=== PATIENT | female | born 1985 | race Caucasian/White ===

== ENCOUNTER → 2018-06-13 | Outpatient (CLI) | payer OTHER ==
[~2018-06-13] MED LIST: ESCI10TA10 PO; IBUP-1222 PO; PRE NATAL PO
[2018-06-13 15:16] LABS: MICROSCOPIC AUTO
[2018-06-13 15:17] LABS: BASOPHILS # (AUTO) 0.04 x10^3/uL (0-0.1); BASOPHILS % (AUTO) 1 % (0-1); EOSINOPHILS # (AUTO) 0.07 x10^3/uL (0-0.4); EOSINOPHILS % (AUTO) 1 % (1-7); LYMPHOCYTES # (AUTO) 1.82 x10^3/uL (1-3.4); LYMPHOCYTES % (AUTO) 35 % (22-44); MD NO; MEAN CORPUSCULAR HEMOGLOBIN 28.9 pg (27.0-34.8); MEAN CORPUSCULAR HGB CONC 32.7 g/dL (32.4-35.8); MEAN CORPUSCULAR VOLUME 88.4 fL (80-100); MEAN PLATELET VOLUME 9.3 fL (7.4-10.4); MONOCYTES % (AUTO) 6 % (2-9); NEUTROPHILS # (AUTO) 3.04 x10^3/uL (1.8-6.8); NEUTROPHILS % (AUTO) 58 % (42-75); PLATELET COUNT 229 x10^3/uL (130-400); RED BLOOD COUNT 4.48 x10^6/uL (3.82-5.3); RED CELL DISTRIBUTION WIDTH 13.7 % (9.6-15.2)
[2018-06-13 15:18] LABS: CULTURE INDICATED? YES
[2018-06-13 15:26] LABS: ALANINE AMINOTRANSFERASE 35 U/L (12-78); ALBUMIN 3.5 g/dL (3.4-5.0); ANION GAP 8 mmol/L (5-15); CALCIUM 8.8 mg/dL (8.5-10.1); CHLORIDE 110 mmol/L (98-107); CREATININE 0.79 mg/dL (0.55-1.02)
[2018-06-13 15:30] LABS: ALKALINE PHOSPHATASE 71 U/L (45-117); BILIRUBIN,TOTAL 0.6 mg/dL (0.2-1.0)
== END | disposition home or self-care (01) ==
LOC: STAR 14:21
PROVIDERS: ATTEND Obstetrics & Gynecology
DX: N87.9 Dysplasia of cervix uteri, unspecified (principal)
CPT/HCPCS: 36415; 80053; 81001; 84702; 85025; 87086

== ENCOUNTER 2018-06-27 05:49 | Day surgery (SDC) | payer OTHER ==
[~2018-06-27] VITALS: Ht 167.6 cm; Wt 72.0 kg
[2018-06-27] MEDS ORDERED: LIDOCAINE 1%-EPI 1:100K, 30ML ONE (06:46)
[2018-06-27 06:47] VITALS: BP 103/68
[2018-06-27] MEDS ORDERED: LACTATED RINGERS 1,000 ML IV SCH (06:51)
[2018-06-27 06:59] LABS: HCG UR SG 1.024 (1.003-1.030)
[2018-06-27] MEDS ORDERED: LIDOCAINE-MPF 1%, 2ML INFIL ONE (07:00)
[2018-06-27] MEDS ORDERED: MIDAZOLAM 1 MG/ML, 2ML ONE (07:01)
[2018-06-27] MEDS ORDERED: FENTANYL PF 250 MCG/5ML ONE (07:02)
[2018-06-27] MEDS ORDERED: PROPOFOL 10 MG/ML, 20ML ONE (07:03)
[2018-06-27] MEDS ORDERED: ONDANSETRON 2MG/ML, 2ML ONE (07:03)
[2018-06-27] MEDS ORDERED: DEXAMETHASONE 4 MG/ML, 1ML ONE (07:04)
[2018-06-27] MEDS ORDERED: OXYcodone 5 MG/5 ML ORAL.SOL UDC PO PRN (07:30)
[2018-06-27] MEDS ORDERED: MIDAZOLAM 1 MG/ML, 2ML IV PRN (07:30)
[2018-06-27] MEDS ORDERED: MEPERIDINE/PF 25MG/0.5ML IVPush PRN (07:30)
[2018-06-27] MEDS ORDERED: FENTANYL PF 100 MCG/2ML IV PRN (07:30)
[2018-06-27] MEDS ORDERED: ONDANSETRON 2MG/ML, 2ML IV PRN (07:30)
[2018-06-27] MEDS ORDERED: MORPHINE SULFATE 4 MG/ML, 1ML IVPush PRN (07:30)
[2018-06-27] MEDS ORDERED: ACETAMINOPHEN 325 MG TABLET PO PRN (07:30)
[2018-06-27] MEDS ORDERED: PROMETHAZINE 25 MG/ML, 1ML IV PRN (07:30)
[2018-06-27] MEDS ORDERED: ROCURONIUM 10 MG/ML,10ML ONE (07:31)
[2018-06-27] MEDS ORDERED: KETOROLAC 30 MG/1 ML ONE (07:40)
== END 2018-06-27 11:25 | disposition home or self-care (01) ==
LOC: OUT 05:49
PROVIDERS: ATTEND Obstetrics & Gynecology
DX: D06.0 Carcinoma in situ of endocervix (principal); F32.9 Major depressive disorder, single episode, unspecified; E78.00 Pure hypercholesterolemia, unspecified; G89.18 Other acute postprocedural pain; B97.7 Papillomavirus as the cause of diseases classified elsewhere; G43.909 Migraine, unspecified, not intractable, without status migrainosus; Z98.890 Other specified postprocedural states; Z72.89 Other problems related to lifestyle
CPT/HCPCS: 36415; 57505; 57522; 81025; 86850; 86900; 88305; 88307; J1100; J1885; J2250; J2405; J2704; J3010; J3490; J7120